=== PATIENT | female | born 2000 | race Caucasian/White ===

== ENCOUNTER 2022-05-16 15:55 | Outpatient (CLI) | payer OTHER, SELFPAY | END 2022-05-16 15:56 | disposition home or self-care (01) | LOC: NFLDREF 15:56 | PROVIDERS: PCP Family Medicine; Visit Provider Family Medicine | DX: Z00.00 Encounter for general adult medical examination without abnormal findings (principal); F41.1 Generalized anxiety disorder | CPT/HCPCS: 84443 ==

== ENCOUNTER 2022-06-06 13:51 | Outpatient (CLI) | payer OTHER, SELFPAY ==
[2022-06-06 18:17] LABS: Chlamydia DNA Amplified* NOT DETECTED (No Detected); GC DNA Amplified* NOT DETECTED (No Detected)
== END 2022-06-06 13:52 | disposition home or self-care (01) ==
PROVIDERS: PCP Family Medicine; Visit Provider Registered Nurse
DX: Z01.419 Encounter for gynecological examination (general) (routine) without abnormal findings (principal); Z11.3 Encounter for screening for infections with a predominantly sexual mode of transmission; Z13.6 Encounter for screening for cardiovascular disorders; Z13.1 Encounter for screening for diabetes mellitus
CPT/HCPCS: 0353U; 80061; 82947; 87491; 87591

== ENCOUNTER 2023-02-09 06:47 | Emergency (ER) | payer OTHER, SELFPAY ==
[2023-02-09 06:52] VITALS: BP 133/82; PULSE 83; RESP 16; TEMP 36.1; O2SAT 100
--- NOTE | 2023-02-09 07:34 | ED_ITS ---
HPI - General Adult General Chief complaint: Allergic Reaction Stated complaint: poss allergic reaction to med Time Seen by Provider: 02/09/23 07:18 Source: patient Limitations: no limitations History of Present Illness HPI narrative: 22-year-old female presents the emergency department with significant other with a host of nonspecific symptoms. She reports nausea with rare vomiting intermittently over the past 5 days. She states that yesterday she ordered an outpatient infusion of Toradol, Zofran and [facility]. A couple of hours later, she began having a feeling of slight swelling of the hands which has been intermittent and bilateral. No difficulty moving or using her hands in any way. No difficulty breathing, shortness of breath, swelling of the lips tongue or any hives. She states that she feels like her eyelids are swollen this morning. No crusting or redness noted. She also states that she has some intermittent slight positional numbness of the top of the left foot on the dorsal aspect. No injury or trauma. No known sick contacts. Has used a little bit of ibuprofen with no significant changes in her symptoms. She has not tried Benadryl or other reaction. She came to the ED 16 hours after symptom onset concerned that she could be having an allergic reaction. No prior history of allergic reaction or anaphylaxis. She does believe that she has had the medications in the past without any known reaction. Past medical history notable for nicotine use. Reports negative test last week. No known allergies, denies long-term health problems. ROS notable for the vague generalized symptoms as above, otherwise denies times 12 systems. Related Data Home Medications Medication Instructions Recorded Confirmed etonogestrel 68 mg subdermal 1 implant subdermal ONCE 10/10/22 10/10/22 implant (Nexplanon) Previous Rx's Medication Instructions Recorded fluconazole 200 mg tablet 200 mg PO QDAY #2 tabs 10/12/22 Allergies Allergy/AdvReac Type Severity Reaction Status Date / Time No Known Allergies Allergy Unknown Unknown Verified 10/10/22 12:14 [facility] Medical History Current every day nicotine vaping (2017) ?Z72.0 - Tobacco use (ICD-10) No pertinent past medical history ?Z78.9 - Other specified health status (ICD-10) Surgical History No history of previous surgery Family History Mother Alcohol dependence Breast cancer, Onset Age: 46 Father Alcohol dependence High blood pressure High cholesterol Other Coronary artery disease Social History Narrative: Single, lives with boyfriend in [place], , no kids Daily by vaping for 5 years, does not smoke cigarettes 1 alcoholic drink a week Does not exercise on regular basis Smoking Status: Never smoker Little interest or pleasure in doing things: several days Feeling down, depressed, or hopeless: several days Exam Const: Vital Signs, click to edit/add: Vital Signs - 24 hr 02/09/23 06:52 Temperature 97.0 F L Pulse Rate [Right Pulse Oximeter] 83 Respiratory Rate 16 Blood Pressure [Ri ght Upper Arm] 133/82 Pulse Oximetry 100 Oxygen Delivery Me thod Room Air Documenting provider has reviewed patient's vital signs: yes Common normals: no apparent distress and alert Orientation/consciousness: Yes awake Other: Mildly anxious but appropriate. No signs of intoxication or impairment. Well nourished, well hydrated, no dehydration. Vitals reviewed, no tachycardia, hypotension. HENMT: Common normals: normocephalic and head/scalp atraumatic Head and scalp: normocephalic and atraumatic Face and sinus: normal facial exam Mouth: oral and palatal mucosa normal Other: No swelling or redness to the posterior pharynx, clear mucus cobblestoning mild postnasal drip only. Eye: Common normals: EOMs intact bilaterally, conjunctivae normal and no scleral icterus General eye: normal appearance of both eyes Conjunctiva: conjunctiva(e) normal Other: She reports bilateral swelling of the upper lids which I do not appreciate on exam. Neck & C-Spine: Common normals: no lymphadenopathy General: normal visual inspection Resp: Common normals: normal respiratory effort, no use of accessory muscles and clear to auscultation bilaterally Effort & inspection: able to speak in complete sentences Auscultation: clear to auscultation bilaterally Cardio: Common normals: regular rate, regular rhythm, S1 normal heart sound, S2 normal heart sound and no murmurs Rate: regular rate Rhythm: regular rhythm Heart sounds: S1 normal and S2 normal GI: Common normals: Normal to inspection, nondistended, normoactive bowel sounds present, soft to palpation, non-tender, no hepatosplenomegaly and no masses Palpation: soft and no hepatosplenomegaly Extremity: Common normals: normal to inspection, full ROM and normal capillary refill Other: Left foot and ankle examined, CMS intact with no visible deformity, swelling, skin abnormality or movement deficit. Neuro: Sensorium/orientation: awake and alert Speech: speech normal Motor exam: no tremor noted and no movement abnormalities noted Psych: Attitude: engaged Mood and affect: euthymic mood Memory/cognition: memory grossly intact Insight: insight good Judgement: judgment good Skin: Common normals: no rashes or lesions noted General skin exam: no rashes or lesions noted Course Course ED Course: Patient concern with allergic reaction. No signs of allergic reaction noted. No hives, no swelling of the airway, no significant facial swelling, skin reaction or other concerning symptom. Vitals are beautifully stable. I suspect that she is having a mild viral infection and there do not seem to be any signs of significant complication. She has had a negative test this week, I have encouraged her to repeat this in a week if her symptoms of nausea persist. I recommend conservative management. Alarm symptoms reviewed that would warrant ED presentation. She seems reassured and verbalizes understanding and agreement. Vital Signs Vital signs: Initial Vital Signs Temperature 97.0 F L 02/09/23 06:52 Temperature Source Temporal Artery Scan 02/09/23 06:52 Pulse Rate 83 02/09/23 06:52 Pulse Rhythm Regular 02/09/23 06:52 Respiratory Rate 16 02/09/23 06:52 Blood Pressure 133/82 02/09/23 06:52 Blood Pressure Mean 99 02/09/23 06:52 Blood Pressure Position Sitting 02/09/23 06:52 Pulse Oximetry 100 02/09/23 06:52 Oxygen Delivery Method Room Air 02/09/23 06:52 Vital Signs Temperature 97.0 F L 02/09/23 06:52 Pulse Rate 83 02/09/23 06:52 Respiratory Rate 16 02/09/23 06:52 Blood Pressure 133/82 02/09/23 06:52 Pulse Oximetry 100 02/09/23 06:52 Oxygen Delivery Method Room Air 02/09/23 06:52 Temperature 97.0 F L 02/09/23 06:52 Pulse Rate 83 02/09/23 06:52 Respiratory Rate 16 02/09/23 06:52 Blood Pressure 133/82 02/09/23 06:52 Pulse Oximetry 100 02/09/23 06:52 Oxygen Delivery Method Room Air 02/09/23 06:52 Discharge Plan Discharge Clinical Impression: Acute viral syndrome Patient Disposition: Home w/ Parent or Adult Condition: Stable Instructions: Enteritis (ED) Additional Instructions: As we discussed, your symptoms are not consistent with an allergic reaction, this is reassuring. The very mild eyelid swelling, nausea, vomiting, achiness and intermittent hand symptoms are most likely part of a viral syndrome. As we discussed, at day 4 of illness, swabs will not be useful in helping pin down which virus. There are no signs of dehydration based on your blood pressure, pulse and exam. Your immune system seems to be doing a great job of clearing things and does not need any further interventions at this time. You may continue to use Tylenol and NSAIDs as needed. Symptoms may last up to 2 weeks. If you are having persistent vomiting, severe dizziness, severe weakness or persistent fevers over 100.4, you should seek re-evaluation. You may return to unrestricted work and school. I would repeat a test if you do not feel better in 7 days, and or make an appointment in the clinic for re-e valuation. Activity Level: No Restrictions Discharge Diet: Regular Prescriptions: No Action Nexplanon 68 mg implant 1 implant subdermal ONCE Rx Instructions: as a single dose fluconazole 200 mg tablet 200 mg PO QDAY Qty: 2 1RF Follow Up/Referrals: Tala Roblero MD [Primary Care Provider] - Stand Alone Forms: [facility] Info Instructions
== END 2023-02-09 07:49 | disposition home or self-care (01) ==
LOC: ED 07:37
PROVIDERS: Emergency Provider Family Medicine; PCP Family Medicine
DX: B34.9 Viral infection, unspecified (principal)
CPT/HCPCS: 99282; 99283

== ENCOUNTER 2023-09-17 14:29 | Outpatient (CLI) | payer BC, SELFPAY | END 2023-09-17 14:30 | disposition home or self-care (01) | PROVIDERS: PCP Family Medicine; Visit Provider Registered Nurse | DX: R53.83 Other fatigue (principal); Z13.29 Encounter for screening for other suspected endocrine disorder; Z13.21 Encounter for screening for nutritional disorder | CPT/HCPCS: 82306; 84443 ==

== ENCOUNTER 2023-11-12 15:42 | Outpatient (CLI) | payer BC, SELFPAY | END 2023-11-12 15:43 | disposition home or self-care (01) | LOC: NFLDREF 15:45 | PROVIDERS: PCP Family Medicine; Visit Provider Registered Nurse | DX: K62.5 Hemorrhage of anus and rectum (principal) | CPT/HCPCS: 86140 ==

== ENCOUNTER 2023-11-13 15:38 | Outpatient (CLI) | payer BC, SELFPAY | END 2023-11-13 15:39 | disposition home or self-care (01) | LOC: NFLDREF 11-18 07:41 | PROVIDERS: PCP Family Medicine; Referring Provider Family Medicine; Visit Provider Registered Nurse | DX: R19.7 Diarrhea, unspecified (principal) | CPT/HCPCS: 87045; 87046; 87077; 87177; 87209; 87427 ==

== ENCOUNTER 2023-11-16 10:59 | Outpatient (CLI) | payer BC, SELFPAY ==
--- NOTE | 2023-11-16 12:10 | W.ANESCHARGE ---
Anesthesia Charges Start Date/Time Anesthesia Start Date: 11/16/23 Anesthesia Start Time: 11:43 Stop Date/Time Anesthesia Stop Date: 11/16/23 Anesthesia Stop Time: 12:07
--- NOTE | 2023-11-16 12:35 | W.ANESCHARGE ---
Anesthesia Charges Start Date/Time Anesthesia Start Date: 11/16/23 Anesthesia Start Time: 11:43 Stop Date/Time Anesthesia Stop Date: 11/16/23 Anesthesia Stop Time: 12:07
== END 2023-11-16 11:00 | disposition home or self-care (01) ==
LOC: OP CLINIC 11:01
PROVIDERS: PCP Family Medicine; Visit Provider Internal Medicine
DX: K92.1 Melena (principal)
CPT/HCPCS: 00811; 45380; 45385; 88305; J2704